=== PATIENT | male | born 1970 | race Caucasian/White ===

== ENCOUNTER 2024-09-13 17:06 | Inpatient (IN) | payer OTHER, SELFPAY ==
[2024-09-13 18:42] LABS: #Basophils Less than 0.03 10x3/uL (0.0-0.2); #Eosinophils Less than 0.03 10x3/uL (0.0-0.7); #Monocytes 0.65 10x3/uL (0.11-0.59); #Neutrophils 6.80 10x3/uL (1.40-6.50); %Basophils 0.1 % (0.0-1.0); %Eosinophils 0.1 % (0.0-10.0); %Lymphocytes 11.2 % (21.0-51.0); %Monocytes 7.6 % (0.0-10.0); %Neutrophils 79.9 % (42.0-75.0); Hematocrit 30.8 % (42.0-52.0); Hemoglobin 11.0 g/dL (14.0-18.0); Mean Corpuscular Hemoglobin 27.4 pg (27.0-31.0); Mean Corpuscular Volume 76.8 fL (78.0-98.0); Platelet Count 146 10x3/uL (130-400); Red Blood Cell (RBC) Count 4.01 mill/uL (4.70-6.10); White Blood Cell (WBC) Count 8.51 10x3/uL (4.8-10.8)
[2024-09-13 18:56] LABS: INR-International Normal Ratio 1.1; Prothrombin Time 13.8 sec (12.0-14.7)
[2024-09-13 18:57] LABS: Acetaminophen Less than 10 mcg/mL (Less than 10); PTT 34.0 sec (22.9-36.1); Salicylate Less than 8.0 mg/dL (Less than 8.0)
[2024-09-13 19:01] LABS: Troponin I 0.013 ng/mL (< 0.028)
[2024-09-13 19:24] LABS: ALT (SGPT) 65 U/L (Less than 45); AST (SGOT) 182 U/L (11-34); Albumin 3.9 g/dL (3.1-4.5); Alkaline Phosphatase 116 U/L (40-110); Anion Gap 28 mmol/L (10-20); BUN (Urea Nitrogen) 7 mg/dL (8.4-25.7); Bilirubin, Total 1.4 mg/dL (0.3-1.2); Calc. Creatinine Clearance 0 mL/min (70-130); Calcium 8.3 mg/dL (7.8-10.44); Carbon Dioxide 10 mmol/L (22-29); Chloride 68 mmol/L (98-107); Globulin 3.1 g/dL (2.4-3.5); Glucose 100 mg/dL (70-105); Potassium 3.8 mmol/L (3.5-5.1); Sodium 102 mmol/L (136-145)
[2024-09-13 20:16] LABS: Anion Gap 23 mmol/L (10-20); BUN (Urea Nitrogen) 7 mg/dL (8.4-25.7); Calc. Creatinine Clearance 0 mL/min (70-130); Calcium 8.1 mg/dL (7.8-10.44); Carbon Dioxide 15 mmol/L (22-29); Chloride 69 mmol/L (98-107); Glucose 91 mg/dL (70-105); Potassium 3.6 mmol/L (3.5-5.1); Sodium 103 mmol/L (136-145)
[2024-09-13 20:18] LABS: Bacteria/HPF None Seen HPF (None Seen); CAUTI Indications for Culture Alt mental st,lethar; Glucose, Urine (Dipstick) 50 mg/dL (Negative); Leukocyte Negative Leu/uL (Negative); Protein, Urine (Dipstick) Negative (Neg-Trace); RBC/HPF None Seen HPF (0-3); Specific Gravity, Urine 1.024 (1.002-1.036); WBC/HPF 0-3 HPF (0-3)
[2024-09-13 20:24] LABS: Urine Culture Reflex No No
[2024-09-13 20:28] LABS: Cocaine Metabolite Screen Negative (Negative); THC/Cannabinoid Screen Negative (Negative); Tricyclic Screen Negative (Negative)
[2024-09-13] MEDS ORDERED: Electrolyte Replacement Protocol 1 EACH FS SCH (21:15)
[2024-09-14] MEDS ORDERED: Ondansetron PF 4 MG/2 ML Vial IVP PRN (02:48)
[2024-09-14] MEDS ORDERED: Calcium Carbonate 500 MG ChewTAB PO PRN (02:48)
[2024-09-14 02:49] LABS: Albumin 3.5 g/dL (3.1-4.5); Anion Gap 18 mmol/L (10-20); BUN (Urea Nitrogen) 8 mg/dL (8.4-25.7); BUN/Creatinine Ratio 12.70; Calc. Creatinine Clearance 0 mL/min (70-130); Calcium 7.9 mg/dL (7.8-10.44); Carbon Dioxide 18 mmol/L (22-29); Chloride 73 mmol/L (98-107); Glucose 88 mg/dL (70-105); Potassium 3.7 mmol/L (3.5-5.1); Sodium 105 mmol/L (136-145)
[2024-09-14] MEDS: Sodium Chloride 256 MEQ in Sterile Water 936 ML IV SCH ×2 (03:07→06:50)
[2024-09-14] MEDS: PHOS-NAK 1 PKT PACK PO SCH (03:41)
[2024-09-14 03:55] LABS: #Basophils Less than 0.03 10x3/uL (0.0-0.2); #Eosinophils Less than 0.03 10x3/uL (0.0-0.7); #Monocytes 0.71 10x3/uL (0.11-0.59); #Neutrophils 6.68 10x3/uL (1.40-6.50); %Basophils 0.1 % (0.0-1.0); %Eosinophils 0.0 % (0.0-10.0); %Lymphocytes 13.3 % (21.0-51.0); %Monocytes 8.2 % (0.0-10.0); %Neutrophils 77.6 % (42.0-75.0); Hematocrit 30.1 % (42.0-52.0); Hemoglobin 10.7 g/dL (14.0-18.0); Mean Corpuscular Hemoglobin 27.2 pg (27.0-31.0); Mean Corpuscular Volume 76.6 fL (78.0-98.0); Platelet Count 156 10x3/uL (130-400); Red Blood Cell (RBC) Count 3.93 mill/uL (4.70-6.10); White Blood Cell (WBC) Count 8.62 10x3/uL (4.8-10.8)
[2024-09-14 04:15] LABS: Anion Gap 18 mmol/L (10-20); BUN (Urea Nitrogen) 8 mg/dL (8.4-25.7); Calc. Creatinine Clearance 225 mL/min (70-130); Calcium 8.3 mg/dL (7.8-10.44); Carbon Dioxide 19 mmol/L (22-29); Chloride 73 mmol/L (98-107); Glucose 83 mg/dL (70-105); Potassium 3.6 mmol/L (3.5-5.1); Sodium 106 mmol/L (136-145)
[2024-09-14 07:46] LABS: Anion Gap 20 mmol/L (10-20); BUN (Urea Nitrogen) 8 mg/dL (8.4-25.7); Calc. Creatinine Clearance 225 mL/min (70-130); Calcium 8.4 mg/dL (7.8-10.44); Carbon Dioxide 22 mmol/L (22-29); Chloride 77 mmol/L (98-107); Glucose 80 mg/dL (70-105); Potassium 3.5 mmol/L (3.5-5.1); Sodium 115 mmol/L (136-145)
[2024-09-14] MEDS: Mupirocin 1 GM TUBE TP SCH (07:57)
[2024-09-14] MEDS: Multivit, Therapeutic 1 TAB PO SCH (07:58)
[2024-09-14] MEDS: Folic Acid 1 MG TAB PO SCH (07:59)
[2024-09-14] MEDS: Famotidine 20 MG TAB PO SCH (08:00)
[2024-09-14 11:36] LABS: Anion Gap 16 mmol/L (10-20); BUN (Urea Nitrogen) 9 mg/dL (8.4-25.7); Calc. Creatinine Clearance 229 mL/min (70-130); Calcium 8.5 mg/dL (7.8-10.44); Carbon Dioxide 21 mmol/L (22-29); Chloride 82 mmol/L (98-107); Glucose 92 mg/dL (70-105); Potassium 3.3 mmol/L (3.5-5.1); Sodium 116 mmol/L (136-145)
[2024-09-14 15:47] LABS: Anion Gap 16 mmol/L (10-20); BUN (Urea Nitrogen) 10 mg/dL (8.4-25.7); Calc. Creatinine Clearance 170 mL/min (70-130); Calcium 9.0 mg/dL (7.8-10.44); Carbon Dioxide 22 mmol/L (22-29); Chloride 83 mmol/L (98-107); Glucose 106 mg/dL (70-105); Potassium 3.1 mmol/L (3.5-5.1); Sodium 118 mmol/L (136-145)
[2024-09-14 19:44] LABS: Anion Gap 15 mmol/L (10-20); BUN (Urea Nitrogen) 10 mg/dL (8.4-25.7); Calc. Creatinine Clearance 172 mL/min (70-130); Calcium 8.6 mg/dL (7.8-10.44); Carbon Dioxide 21 mmol/L (22-29); Chloride 85 mmol/L (98-107); Glucose 121 mg/dL (70-105); Potassium 3.1 mmol/L (3.5-5.1); Sodium 118 mmol/L (136-145)
[2024-09-14 23:32] LABS: Anion Gap 15 mmol/L (10-20); BUN (Urea Nitrogen) 12 mg/dL (8.4-25.7); Calc. Creatinine Clearance 150 mL/min (70-130); Calcium 8.9 mg/dL (7.8-10.44); Carbon Dioxide 21 mmol/L (22-29); Chloride 88 mmol/L (98-107); Glucose 69 mg/dL (70-105); Osmolality, Serum 253 mOsm/kg (275-295); Potassium 3.4 mmol/L (3.5-5.1); Sodium 121 mmol/L (136-145)
[2024-09-15 05:20] LABS: ALT (SGPT) 68 U/L (Less than 45); AST (SGOT) 250 U/L (11-34); Albumin 3.5 g/dL (3.1-4.5); Alkaline Phosphatase 104 U/L (40-110); Anion Gap 15 mmol/L (10-20); BUN (Urea Nitrogen) 10 mg/dL (8.4-25.7); Bilirubin, Total 0.9 mg/dL (0.3-1.2); Calc. Creatinine Clearance 192 mL/min (70-130); Calcium 8.4 mg/dL (7.8-10.44); Carbon Dioxide 23 mmol/L (22-29); Chloride 89 mmol/L (98-107); Globulin 2.6 g/dL (2.4-3.5); Glucose 109 mg/dL (70-105); Potassium 3.0 mmol/L (3.5-5.1); Sodium 124 mmol/L (136-145)
[2024-09-15] MEDS: Potassium Phosphate 22 MMOL in Sodium Chloride 0.9% 250 ML 250 ML IVPB SCH (07:07)
[2024-09-15] MEDS: Potassium Chloride 20 MEQ in Premix 1 BAG IVPB SCH (07:08)
[2024-09-15] MEDS: Acetaminophen 325 MG TAB PO PRN (08:15)
[2024-09-15 11:11] LABS: Osmolality, Urine 128 mOsm/kg (50-1200)
[2024-09-15 11:52] LABS: Anion Gap 14 mmol/L (10-20); BUN (Urea Nitrogen) 10 mg/dL (8.4-25.7); Calc. Creatinine Clearance 198 mL/min (70-130); Calcium 8.4 mg/dL (7.8-10.44); Carbon Dioxide 22 mmol/L (22-29); Chloride 90 mmol/L (98-107); Glucose 115 mg/dL (70-105); Potassium 3.6 mmol/L (3.5-5.1); Sodium 122 mmol/L (136-145)
[2024-09-15 17:39] LABS: Anion Gap 10 mmol/L (10-20); BUN (Urea Nitrogen) 10 mg/dL (8.4-25.7); Calc. Creatinine Clearance 171 mL/min (70-130); Calcium 8.8 mg/dL (7.8-10.44); Carbon Dioxide 27 mmol/L (22-29); Chloride 90 mmol/L (98-107); Glucose 111 mg/dL (70-105); Potassium 3.4 mmol/L (3.5-5.1); Sodium 124 mmol/L (136-145)
[2024-09-15 20:27] LABS: Anion Gap 14 mmol/L (10-20); BUN (Urea Nitrogen) 9 mg/dL (8.4-25.7); Calc. Creatinine Clearance 163 mL/min (70-130); Calcium 8.7 mg/dL (7.8-10.44); Carbon Dioxide 22 mmol/L (22-29); Chloride 93 mmol/L (98-107); Glucose 96 mg/dL (70-105); Potassium 3.9 mmol/L (3.5-5.1); Sodium 125 mmol/L (136-145)
[2024-09-16 00:15] LABS: Anion Gap 13 mmol/L (10-20); BUN (Urea Nitrogen) 9 mg/dL (8.4-25.7); Calc. Creatinine Clearance 184 mL/min (70-130); Calcium 8.5 mg/dL (7.8-10.44); Carbon Dioxide 24 mmol/L (22-29); Chloride 91 mmol/L (98-107); Glucose 112 mg/dL (70-105); Potassium 3.4 mmol/L (3.5-5.1); Sodium 125 mmol/L (136-145)
[2024-09-16 05:22] LABS: ALT (SGPT) 70 U/L (Less than 45); AST (SGOT) 289 U/L (11-34); Albumin 3.5 g/dL (3.1-4.5); Alkaline Phosphatase 93 U/L (40-110); Anion Gap 12 mmol/L (10-20); BUN (Urea Nitrogen) 9 mg/dL (8.4-25.7); Bilirubin, Total 0.9 mg/dL (0.3-1.2); Calc. Creatinine Clearance 206 mL/min (70-130); Calcium 8.6 mg/dL (7.8-10.44); Carbon Dioxide 25 mmol/L (22-29); Chloride 94 mmol/L (98-107); Globulin 2.6 g/dL (2.4-3.5); Glucose 119 mg/dL (70-105); Potassium 3.2 mmol/L (3.5-5.1); Sodium 128 mmol/L (136-145)
[2024-09-16 06:28] VITALS: BMI 33.8
[2024-09-16] MEDS: Potassium Bicarbonate/Cit Ac 20 MEQ TAB PO SCH (15:11)
[2024-09-16 16:52] LABS: Anion Gap 15 mmol/L (10-20); BUN (Urea Nitrogen) 9 mg/dL (8.4-25.7); Calc. Creatinine Clearance 209 mL/min (70-130); Calcium 8.8 mg/dL (7.8-10.44); Carbon Dioxide 23 mmol/L (22-29); Chloride 94 mmol/L (98-107); Glucose 153 mg/dL (70-105); Potassium 3.8 mmol/L (3.5-5.1); Sodium 128 mmol/L (136-145)
[2024-09-16] MEDS: Thiamine 100 MG TAB PO SCH (19:45)
[2024-09-17 05:58] LABS: Anion Gap 14 mmol/L (10-20); BUN (Urea Nitrogen) 7 mg/dL (8.4-25.7); Calc. Creatinine Clearance 197 mL/min (70-130); Calcium 9.0 mg/dL (7.8-10.44); Carbon Dioxide 26 mmol/L (22-29); Chloride 94 mmol/L (98-107); Glucose 109 mg/dL (70-105); Potassium 3.7 mmol/L (3.5-5.1); Sodium 130 mmol/L (136-145)
[2024-09-18 06:36] LABS: Iron 27 ug/dL (65-175); Iron Binding Capacity, Total 395 mcg/dL (261-462)
[2024-09-18 07:03] LABS: Ferritin 27.85 ng/mL (22-322); Vitamin B12 570.0 pg/mL (211-911)
[2024-09-18 09:12] LABS: Iron Binding Capacity, Total 390 mcg/dL (261-462)
[2024-09-18 09:13] LABS: Iron 28 ug/dL (65-175)
[2024-09-18 12:43] LABS: Anion Gap 17 mmol/L (10-20); BUN (Urea Nitrogen) 11 mg/dL (8.4-25.7); Calc. Creatinine Clearance 194 mL/min (70-130); Calcium 9.2 mg/dL (7.8-10.44); Carbon Dioxide 22 mmol/L (22-29); Chloride 97 mmol/L (98-107); Glucose 92 mg/dL (70-105); Potassium 3.7 mmol/L (3.5-5.1); Sodium 132 mmol/L (136-145)
[2024-09-18] MEDS: hydrALAZINE 20 MG/ML VIAL SLOW IVP PRN (16:08)
[2024-09-18] MEDS: Ferrous Sulfate 325 MG TAB PO SCH (17:14)
[2024-09-18] MEDS: NIFEdipine XL 30 MG ER.TAB PO SCH (17:14)
[2024-09-19 05:59] LABS: Anion Gap 13 mmol/L (10-20); BUN (Urea Nitrogen) 12 mg/dL (8.4-25.7); Calc. Creatinine Clearance 186 mL/min (70-130); Calcium 9.1 mg/dL (7.8-10.44); Carbon Dioxide 26 mmol/L (22-29); Chloride 101 mmol/L (98-107); Glucose 95 mg/dL (70-105); Potassium 4.0 mmol/L (3.5-5.1); Sodium 136 mmol/L (136-145)
[2024-09-19] MEDS: NIFEdipine XL 30 MG ER.TAB PO SCH (08:19)
[2024-09-19 11:26] VITALS: BP 152/96; TEMP 99.1
== END 2024-09-19 11:33 | disposition home or self-care (01) | DRG 640 ==
LOC: ERS 17:06 → CCU 23:53 → T4-B 09-16 11:31
PROVIDERS: ADMIT Student in an Organized Health Care Education/Training Program; ATTEND Internal Medicine
DX: E87.1 Hypo-osmolality and hyponatremia (principal); G93.41 Metabolic encephalopathy; F10.10 Alcohol abuse, uncomplicated; E87.20 Acidosis, unspecified; Z96.651 Presence of right artificial knee joint; Z96.652 Presence of left artificial knee joint; R56.9 Unspecified convulsions; S01.81XA Laceration without foreign body of other part of head, initial encounter; E86.0 Dehydration; I10 Essential (primary) hypertension; W19.XXXA Unspecified fall, initial encounter; D50.9 Iron deficiency anemia, unspecified; K71.8 Toxic liver disease with other disorders of liver; Z98.84 Bariatric surgery status; Z91.81 History of falling
CPT/HCPCS: 36415; 70450; 70486; 71045; 72125; 80048; 80053; 80069; 80306; 80307; 81001; 82533; 82607; 82728; 83540; 83550; 83605; 83880; 83930; 83935; 84100; 84146; 84443; 84484; 84550; 85025; 85610; 85730; 93005; 96365; A4217; J0360; J2560; J3411; J3480; J7050; J7070